=== PATIENT | male | born 1970 | race Caucasian/White ===

== ENCOUNTER 2024-07-15 08:07 | Emergency (ER) | payer OTHER ==
[~2024-07-15] VITALS: Ht 172.7 cm; Wt 68.2 kg
[~2024-07-15 08:07] MED LIST: DIPH-423 PO; HYDR1TAB PO; NO HOME MEDS; SULF-117 PO
[2024-07-15] MEDS: ketorolac trometh 15mg/ml vial 15 MG/ML ML IM ONE (10:07)
[2024-07-15] MEDS: LIDOcaine 5% patch TP ONE (10:07)
[2024-07-15] MEDS ORDERED: LIDO700A32 TD (10:22)
[2024-07-15 11:22] VITALS: BP 134/79; PULSE 89; RESP 16; TEMP 98; O2SAT 96
== END 2024-07-15 11:26 | disposition home or self-care (01) ==
LOC: ER 08:08
DX: G89.29 Other chronic pain (principal); M54.50 Low back pain, unspecified; F41.9 Anxiety disorder, unspecified; F12.90 Cannabis use, unspecified, uncomplicated; F31.9 Bipolar disorder, unspecified; Z79.899 Other long term (current) drug therapy; Z59.00 Homelessness unspecified
CPT/HCPCS: 96372; 99283; J1885